=== PATIENT | female | born 1960 | race African-American/Black ===

== ENCOUNTER 2023-09-15 16:18 | Inpatient (IN) | payer MEDICARE, MEDICAID ==
[~2023-09-15] VITALS: Ht 162.6 cm; Wt 85.3 kg
[2023-09-15 20:40] VITALS: BP 155/86; PULSE 80; RESP 18; TEMP 98.2; O2SAT 98
[2023-09-15] MEDS: SENNOSIDES 8.6 MG TABLET PO SCH (22:00)
[2023-09-15] MEDS ORDERED: SIMETHICONE 80 MG CHEWABLE TABLET CHEW PRN (22:00)
[2023-09-15] MEDS ORDERED: MELATONIN 3 MG TABLET PO PRN (22:00)
[2023-09-15] MEDS ORDERED: ACETAMINOPHEN 325 MG TABLET PO PRN (22:00)
[2023-09-15] MEDS: DOCUSATE SODIUM 100 MG CAPSULE PO SCH (22:00)
[2023-09-15] MEDS: ATORVASTATIN CALCIUM 40 MG TABLET PO SCH (22:47)
[2023-09-15] MEDS: TICAGRELOR 90 MG TABLET PO SCH (22:48)
[2023-09-15] MEDS: ETHYL ALCOHOL 62% ANTISEPTIC NASAL SANITIZER 0.6 ML AMPUL NASAL SCH (22:50)
[2023-09-16 01:51] VITALS: O2SAT 98
[2023-09-16 08:00] VITALS: BP 136/75; PULSE 86; RESP 18; TEMP 98.2; O2SAT 98
[2023-09-16] MEDS: ASPIRIN 81 MG CHEWABLE TABLET PO SCH (08:09)
[2023-09-16] MEDS: LIDOCAINE 5% TRANSDERMAL PATCH TD SCH (08:10)
[2023-09-16] MEDS: FAMOTIDINE 20 MG TABLET PO SCH (08:10)
[2023-09-16 08:49] LABS: BASOPHILS % (AUTO) 0.4 % (0.0-2.0); EOSINOPHILS % (AUTO) 2.1 % (1.0-6.0); HEMATOCRIT 34.5 % (36-46); HEMOGLOBIN 11.9 g/dL (12.0-16.0); LYMPHOCYTES # (AUTO) 1.6 K/uL (1.0-4.8); LYMPHOCYTES % (AUTO) 28.7 % (22.0-44.0); MEAN CORPUSCULAR HEMOGLOBIN 29.9 pg (26.0-34.0); MEAN CORPUSCULAR HGB CONC 34.6 G/dL (31.0-37.0); MEAN CORPUSCULAR VOLUME 87 fL (80-100); MONOCYTES # (AUTO) 0.5 K/uL (0.1-1.0); MONOCYTES % (AUTO) 9.1 % (2.0-9.0); NEUTROPHILS # (AUTO) 3.4 K/uL (1.8-7.7); NEUTROPHILS % (AUTO) 59.7 % (40.0-70.0); PLATELET COUNT (AUTO) 307 K/uL (150-450); RED BLOOD CELL COUNT(AUTO) 3.99 MIL/uL (4.00-5.20); RED CELL DISTRIBUTION WIDTH 13.9 % (11.5-14.5); WHITE BLOOD COUNT (AUTO) 5.7 K/uL (4.5-11.0)
[2023-09-16 09:15] LABS: ALANINE AMINOTRANSFERASE 31 U/L (12-78); ALBUMIN 3.4 g/dL (3.4-5.0); ALKALINE PHOSPHATASE 89 U/L (46-116); ANION GAP 11 mmol/L (8-16); ASPARTATE AMINOTRANSFERASE 29 U/L (15-37); BILIRUBIN,TOTAL 0.7 mg/dL (0.1-1.0); CALCIUM, TOTAL 9.1 mg/dL (8.8-10.5); CARBON DIOXIDE 26 mmol/L (22-29); CHLORIDE 103 mmol/L (98-107); CREATININE 0.82 mg/dL (0.60-1.30); GLOMERULAR FILTR. RATE CALC > 60 mL/min (>60); GLUCOSE,RANDOM 94 mg/dL (70-110); POTASSIUM 3.4 mmol/L (3.5-5.1); SODIUM SERUM 140 mmol/L (136-145); TOTAL PROTEIN, SERUM 7.9 g/dL (6.4-8.2); UREA NITROGEN, BLOOD 10 mg/dL (7-18)
[2023-09-16] MEDS: POTASSIUM CHLORIDE 10 MEQ ER TABLET PO ONE (10:15)
[2023-09-16] MEDS: HEPARIN SODIUM,PORCINE 5,000 UNITS/ML VIAL SQ SCH (20:27)
[2023-09-16] MEDS: -LIDODERM PATCH NOTE- MISC SCH (20:34)
[2023-09-16 20:37] VITALS: BP 140/75; PULSE 90; RESP 18; TEMP 98.7; O2SAT 96
[2023-09-16 20:39] VITALS: O2SAT 96
[2023-09-16 22:17] VITALS: O2SAT 96
[2023-09-17 08:00] VITALS: BP 145/92; PULSE 82; RESP 18; TEMP 97.7; O2SAT 98
[2023-09-17 08:30] VITALS: O2SAT 98
[2023-09-17] MEDS: DICLOFENAC SODIUM 1% 100 GM GEL [2GM] TP SCH (16:19)
[2023-09-17 20:00] VITALS: O2SAT 98
[2023-09-17 20:12] VITALS: BP 143/86; PULSE 74; RESP 18; TEMP 98.2; O2SAT 98
[2023-09-17 21:22] VITALS: O2SAT 98
[2023-09-18 09:02] VITALS: BP 144/86; PULSE 81; RESP 18; TEMP 98.2; O2SAT 99
[2023-09-18] MEDS: METOPROLOL SUCCINATE 50 MG ER TABLET PO SCH (10:09)
[2023-09-18] MEDS: AmLODIPine BESYLATE 5 MG TABLET PO SCH (10:09)
[2023-09-18 15:42] VITALS: O2SAT 99
[2023-09-18 20:48] VITALS: BP 124/75; PULSE 76; RESP 18; TEMP 98.8; O2SAT 100
[2023-09-19 08:00] VITALS: BP 146/89; PULSE 84; RESP 18; TEMP 98.2; O2SAT 99
[2023-09-19] MEDS: ACYCLOVIR 200 MG CAPSULE PO SCH (09:36)
[2023-09-19 09:41] LABS: ANION GAP 13 mmol/L (8-16); CALCIUM, TOTAL 9.4 mg/dL (8.8-10.5); CARBON DIOXIDE 24 mmol/L (22-29); CHLORIDE 103 mmol/L (98-107); CREATININE 1.04 mg/dL (0.60-1.30); GLOMERULAR FILTR. RATE CALC > 60 mL/min (>60); GLUCOSE,RANDOM 102 mg/dL (70-110); POTASSIUM 3.8 mmol/L (3.5-5.1); SODIUM SERUM 140 mmol/L (136-145); UREA NITROGEN, BLOOD 9 mg/dL (7-18)
[2023-09-19] MEDS ORDERED: ACYC-138 PO (11:02)
[2023-09-19] MEDS ORDERED: ASPI-1450 PO (11:02)
[2023-09-19] MEDS ORDERED: ATOR40TA28 PO (11:02)
[2023-09-19] MEDS ORDERED: FAMO20 PO (11:02)
[2023-09-19] MEDS ORDERED: AMLO-257 PO (11:02)
[2023-09-19] MEDS ORDERED: DOCU-385 PO (11:02)
[2023-09-19] MEDS ORDERED: ACET-2247 PO (11:02)
[2023-09-19] MEDS ORDERED: DICL100G60 TP (11:02)
[2023-09-19] MEDS ORDERED: TICA90TA PO (11:02)
[2023-09-19] MEDS ORDERED: LIDO700A15 TP (11:02)
[2023-09-19] MEDS ORDERED: METO-325 PO (11:02)
[2023-09-19] MEDS ORDERED: SENN-376 PO (11:02)
[2023-09-19 20:00] VITALS: BP 116/64; PULSE 76; RESP 18; TEMP 98.4; O2SAT 100
[2023-09-19] MEDS: AmLODIPine BESYLATE 5 MG TABLET PO SCH (20:11)
[2023-09-19 21:56] VITALS: O2SAT 100
[2023-09-20 08:05] VITALS: BP 129/71; PULSE 72; RESP 18; TEMP 98.2; O2SAT 98
[2023-09-20 08:36] VITALS: O2SAT 98
[2023-09-20] MEDS ORDERED: TICA90TA PO (08:55)
[2023-09-20] MEDS ORDERED: FAMO20 PO (08:55)
[2023-09-20] MEDS ORDERED: ASPI-1450 PO (08:55)
[2023-09-20] MEDS ORDERED: AMLO-257 PO (08:55)
[2023-09-20] MEDS ORDERED: METO-391 PO (08:55)
[2023-09-20] MEDS ORDERED: ATOR40TA71 PO (08:55)
[2023-09-20] MEDS ORDERED: SENN-277 PO (08:55)
[2023-09-20] MEDS ORDERED: DOCU-385 PO (08:55)
[2023-09-20] MEDS ORDERED: ACYC200C24 PO (08:55)
[2023-09-20] MEDS ORDERED: DICL100G60 TP (08:55)
== END 2023-09-20 11:00 | disposition home or self-care (01) | DRG 56 ==
LOC: 2WR 20:23
PROVIDERS: ADMIT Physical Medicine & Rehabilitation; ATTEND Physical Medicine & Rehabilitation
DX: G81.91 Hemiplegia, unspecified affecting right dominant side (principal); I63.512 Cerebral infarction due to unspecified occlusion or stenosis of left middle cerebral artery; A04.72 Enterocolitis due to Clostridium difficile, not specified as recurrent; Q21.12 Patent foramen ovale; R47.01 Aphasia; E78.5 Hyperlipidemia, unspecified; I10 Essential (primary) hypertension; M48.061 Spinal stenosis, lumbar region without neurogenic claudication; M25.511 Pain in right shoulder; G47.33 Obstructive sleep apnea (adult) (pediatric); J44.9 Chronic obstructive pulmonary disease, unspecified; G89.29 Other chronic pain; E73.9 Lactose intolerance, unspecified; I73.9 Peripheral vascular disease, unspecified; E87.6 Hypokalemia; R29.708 NIHSS score 8; K76.0 Fatty (change of) liver, not elsewhere classified; Z85.3 Personal history of malignant neoplasm of breast; Z85.038 Personal history of other malignant neoplasm of large intestine; Z85.41 Personal history of malignant neoplasm of cervix uteri; Z88.0 Allergy status to penicillin; Z90.710 Acquired absence of both cervix and uterus
CPT/HCPCS: 80048; 80053; 85025; 87081; 92507; 92523; 97110; 97112; 97116; 97162; 97166; 97530; 97535; 99366; J1644